=== PATIENT | female | born 1960 | race Caucasian/White ===

== ENCOUNTER 2017-09-19 10:07 | Emergency (ER) | payer MEDICAID, OTHER, SELFPAY ==
[~2017-09-19] VITALS: Ht 162.6 cm; Wt 70.5 kg
[2017-09-19 10:09] VITALS: BP 135/84
[2017-09-19] MEDS ORDERED: HYDROcodone/APAP 5/325 TABLET PO ONE (11:30)
[2017-09-19] MEDS ORDERED: HYDROcodone/APAP 5/325 TABLET ONE (11:34)
== END 2017-09-19 13:14 | disposition home or self-care (01) ==
LOC: ED 13:08
DX: S82.65XA Nondisplaced fracture of lateral malleolus of left fibula, initial encounter for closed fracture (principal); W19.XXXA Unspecified fall, initial encounter; Y93.89 Activity, other specified; Y92.009 Unspecified place in unspecified non-institutional (private) residence as the place of occurrence of the external cause; Y99.9 Unspecified external cause status
CPT/HCPCS: 29515; 99284

== ENCOUNTER 2019-10-04 17:55 | Emergency (ER) | payer MEDICAID ==
[~2019-10-04] VITALS: Ht 162.6 cm; Wt 70.0 kg
--- NOTE | 2019-10-04 18:17 | NUR ---
C/O GLF AFTER LEGS "GAVE OUT FROM UNDER HER". STATES SHE HIT HER LEFT SCAPULA IN THE FALL, WITH A SMALL RED DIDI. DENIES HITTING HER HEAD AND LOC. CONNECTED TO MONITORING. CALL LIGHT IN REACH. FALL PRECAUTIONS IN PLACE.
[2019-10-04 19:05] VITALS: BP 155/97
[2019-10-04 19:16] LABS: ALANINE AMINOTRANSFERASE 50 U/L (12-78); ALBUMIN 3.1 g/dL (3.4-5.0); ANION GAP 7 mmol/L (5-15); CALCIUM 9.1 mg/dL (8.5-10.1); CHLORIDE 102 mmol/L (98-107)
[2019-10-04 19:20] LABS: ALKALINE PHOSPHATASE 100 U/L (45-117); BILIRUBIN,TOTAL 0.2 mg/dL (0.2-1.0); TOTAL PROTEIN 6.9 g/dL (6.4-8.2); TROPONIN I < 0.015 ng/mL (0.000-0.045)
--- NOTE | 2019-10-04 19:26 | NUR ---
PT AMBULATES TO RESTROOM WITH STEADY GAIT WITH ASSISTANCE FROM PARTNER.
--- NOTE | 2019-10-04 19:26 | NUR ---
REPORT OF PT FROM TIMOTHY TIDWELL AND ASSUMING CARE OF PT AT THIS TIME.
--- NOTE | 2019-10-04 19:29 | NUR ---
URINE COLLECTED AND WALKED TO LAB.
[2019-10-04 20:09] LABS: BASOPHILS # (AUTO) 0.04 x10^3/uL (0-0.1); BASOPHILS % (AUTO) 1 % (0-1); EOSINOPHILS # (AUTO) 0.31 x10^3/uL (0-0.4); EOSINOPHILS % (AUTO) 4 % (1-7); LYMPHOCYTES # (AUTO) 2.29 x10^3/uL (1-3.4); LYMPHOCYTES % (AUTO) 28 % (22-44); MD NO; MEAN CORPUSCULAR HEMOGLOBIN 31.1 pg (27.0-34.8); MEAN CORPUSCULAR HGB CONC 33.6 g/dL (32.4-35.8); MEAN CORPUSCULAR VOLUME 92.5 fL (80-100); MEAN PLATELET VOLUME 7.2 fL (7.4-10.4); MONOCYTES # (AUTO) 0.59 x10^3/uL (0.2-0.8); MONOCYTES % (AUTO) 7 % (2-9); NEUTROPHILS # (AUTO) 4.94 x10^3/uL (1.8-6.8); NEUTROPHILS % (AUTO) 60 % (42-75); PLATELET COUNT 366 x10^3/uL (130-400); RED CELL DISTRIBUTION WIDTH 14.9 % (9.6-15.2)
[2019-10-04 20:30] LABS: MICROSCOPIC INDICATED
[2019-10-04 20:47] LABS: CULTURE INDICATED? NO
--- NOTE | 2019-10-04 21:14 | NUR ---
PT D/C WITH D/C SUMMARY. ALL QUESTIONS ANSWERED. PT AMBUALTES TO REGISTRATION DESK WITH SLOW AND STEADY GAIT WITH COMPANY OF PARTNER. PT VERBALIZES UNDERSTANDING OF D/C SUMMARY AND F/U INSTRUCTIONS AND DENIES ANY OTHER NEEDS PERTAINING TO THIS VISIT.
== END 2019-10-04 21:17 | disposition home or self-care (01) ==
LOC: ED 19:43
DX: R55 Syncope and collapse (principal); R42 Dizziness and giddiness; R53.1 Weakness; R51 Headache; I10 Essential (primary) hypertension; F31.9 Bipolar disorder, unspecified; W01.198A Fall on same level from slipping, tripping and stumbling with subsequent striking against other object, initial encounter; Y93.89 Activity, other specified; Y92.89 Other specified places as the place of occurrence of the external cause; Y99.8 Other external cause status
CPT/HCPCS: 36415; 70450; 71045; 80053; 80164; 81001; 84484; 85025; 93005; 99284